=== PATIENT | female | born 1970 | race Hispanic/Latino ===

== ENCOUNTER 2020-03-03 18:56 | Observation (INO) | payer BC ==
[~2020-03-03] VITALS: Ht 157.5 cm; Wt 55.5 kg
[~2020-03-03 18:56] MED LIST: MULTI-VITAMIN1 EACH; NEXIUM40 MG PO
--- NOTE | 2020-03-03 19:30 | Emergency Department Note ---
History of Present Illnes History of Present Illness Chief Complaint: COVID PUI History of Present Illness This is a 50 year old female REPORTS GENERALIZED WEAKNESS, CHEST AND BACK PAIN, BODY ACHES, CHILLS; PT TESTED AT [employer] YESTERDAY FOR COVID (NOT RESULTED AT THIS TIME) PT REPORTS WAS IN CONTACT WITH COVID + FRIEND X1 WEEK AGO. STATES HER SYMPTOMS STARTED 3 DAYS AGO. Historian: Patient Arrival Mode: Car Onset (how long ago): day(s) (3) Location: CHEST Quality: PAIN, HURTS TO BREATH Severity: mild Onset quality: gradual Duration (how long): day(s) (3) Timing of current episode: constant Progression: unchanged Chronicity: new Context: Denies recent illness, Denies recent surgery Exacerbating factors: other (INSPIRATION, COUGH) Associated symptoms: Reports chest pain (WITH INSPIRATION, COUGH), Reports cough (DRY), Reports fever/chills (SUBJECTIVE), Reports malaise Treatments prior to arrival: none Past Medical/Family History Physician Review I have reviewed the patient's past medical and family history. Any updates have been documented here. Past Medical History Recent Fever: Yes Clinical Suspicion of Infectio: No New/Unexplained Change in Ment: No Past Medical History: GERD Other Surgery: BREAST AUGMENTATION Social History Smoking Cessation: Never Smoker Alcohol Use: Occasional Any Illegal Drug Use: No Family History Family history of heart diseas: No Other Last Tetanus: UTD Review of Systems Review of Systems Constitutional: Reports as per HPI EENTM: Reports no symptoms Cardiovascular: Reports as per HPI Respiratory: Reports as per HPI Gastrointestinal: Reports no symptoms Genitourinary: Reports no symptoms Musculoskeletal: Reports no symptoms Integumentary: Reports no symptoms Neurological: Reports no symptoms Psychological: Reports no symptoms Endocrine: Reports no symptoms Hematological/Lymphatic: Reports no symptoms Physical Exam Related Data Allergies: Coded Allergies: No Known Allergies (Unverified , 06/23/13) Triage Vital Signs Vital Signs Date Time Temp Pulse Resp B/P (MAP) Pulse Ox O2 Delivery O2 Flow Rate FiO2 03/03/20 19:02 99.4 78 17 152/79 99 Vital signs reviewed: Yes Physical Exam CONSTITUTIONAL Constitutional: Present well-developed, Present well-nourished HENT HENT: Present normocephalic, Present atraumatic, Present oropharynx clear/moist, Present nose normal HENT L/R: Present left ext ear normal, Present right ext ear normal EYES Eyes: Reports PERRL, Reports conjunctivae normal NECK Neck: Present ROM normal PULMONARY Pulmonary: Present effort normal, Present breath sounds normal, Present chest tenderness (MILD MIDSTERNAL) CARDIOVASCULAR Cardiovascular: Present regular rhythm, Present heart sounds normal, Present capillary refill normal, Present normal rate GASTROINTESTINAL Abdominal: Present soft, Present nontender, Present bowel sounds normal GENITOURINARY Genitourinary: Present exam deferred SKIN Skin: Present warm, Present dry MUSCULOSKELETAL Musculoskeletal: Present ROM normal NEUROLOGICAL Neurological: Present alert, Present oriented x 3, Present no gross motor or sensory deficits PSYCHOLOGICAL Psychological: Present mood/affect normal, Present judgement normal Results Laboratory Laboratory Laboratory Tests Test 03/03/20 21:05 03/03/20 19:25 Urine Color Yellow (YELLOW) Urine Clarity Clear (CLEAR) Urine pH 5.5 (5 - 7) Urine Specific [place] >=1.030 (1.010-1.025) Urine Protein Negative (NEGATIVE) Urine Glucose (UA) Negative (NEGATIVE) Urine Ketones Negative (NEGATIVE) Urine Blood Trace (NEGATIVE) Urine Nitrite Negative (NEGATIVE) Urine Bilirubin Negative (NEGATIVE) Urine Urobilinogen 0.2 mg/dL (0.2 - 1) Urine Leukocyte Esterase Negative (NEGATIVE) Urine RBC 6-10 /HPF (0-5) Urine WBC 6-10 /HPF (0-5) Urine Epithelial Cells Few /LPF (NONE) Urine Bacteria Rare /HPF (NONE) White Blood Count 4.15 x10e3/uL (4.8-10.8) Red Blood Count 4.68 x10e6/uL (3.6-5.1) Hemoglobin 13.6 g/dL (12.0-16.0) Hematocrit 41.5 % (34.2-44.1) Mean Corpuscular Volume 88.7 fL (81-99) Mean Corpuscular Hemoglobin 29.1 pg (28-32) Mean Corpuscular Hemoglobin Concent 32.8 g/dL (31-35) Red Cell Distribution Width 14.0 % (11.7-14.4) Platelet Count 321 x10e3/uL (140-360) Neutrophils (%) (Auto) 49.7 % (38.7-80.0) Lymphocytes (%) (Auto) 41.0 % (18.0-39.1) Monocytes (%) (Auto) 6.7 % (4.4-11.3) Eosinophils (%) (Auto) 1.7 % (0.0-6.0) Basophils (%) (Auto) 0.7 % (0.0-1.0) Neutrophils # (Auto) 2.1 (2.1-6.9) Lymphocytes # (Auto) 1.7 (1.0-3.2) Monocytes # (Auto) 0.3 (0.2-0.8) Eosinophils # (Auto) 0.1 (0.0-0.4) Basophils # (Auto) 0.0 (0.0-0.1) Absolute Immature Granulocyte (auto 0.01 x10e3/uL (0-0.1) D-Dimer Quantitative (PE/DVT) 500 ng/mL (0-400) Sodium Level 138 mmol/L (136-145) Potassium Level 3.7 mmol/L (3.5-5.1) Chloride Level 105 mmol/L (98-107) Carbon Dioxide Level 22 mmol/L (22-29) Anion Gap 14.7 mmol/L (8-16) Blood Urea Nitrogen 11 mg/dL (7-26) Creatinine 0.75 mg/dL (0.57-1.11) Estimat Glomerular Filtration Rate > 60 ML/MIN (60-) BUN/Creatinine Ratio 15 (6-25) Glucose Level 117 mg/dL (74-118) Calcium Level 10.0 mg/dL (8.4-10.2) Total Bilirubin 0.2 mg/dL (0.2-1.2) Aspartate Amino Transf (AST/SGOT) 20 IU/L (5-34) Alanine Aminotransferase (ALT/SGPT) 14 IU/L (0-55) Alkaline Phosphatase 47 IU/L (40-150) Creatine Kinase 36 IU/L (29-168) Creatine Kinase MB 0.30 ng/mL (0-5.0) Troponin I < 0.001 ng/mL (0-0.300) Total Protein 7.4 g/dL (6.5-8.1) Albumin 4.0 g/dL (3.5-5.0) Globulin 3.4 g/dL (2.3-3.5) Albumin/Globulin Ratio 1.2 (0.8-2.0) Human Chorionic Gonadotropin, Qual Negative (NEGATIVE) Lab results reviewed: Yes Imaging Imaging results reviewed: Yes Impressions ct chest IMPRESSION: No pulmonary emboli. Left lower lobe airspace opacity, representing pneumonia. Signed by: Dr. 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 Was exposed was with a friend a week ago who tested positive for Covid a couple days later. CBC, CMP, cardiac enzymes, EKG, chest x-ray, Covid 19, d-dimer, ordered to eval for myocardial infarction, pneumonia, Covid 19, pulmonary embolus. Patient's D-dimer test was positive. CT chest with contrast PE protocol ordered to eval for pulmonary embolus. Patient found to have left lobe pneumonia has no white count has positive Covid exposure is felt the patient most likely a covid [address] Sushant Marshall doctor should be and Dr. Avery. Admit patient to the coronal unit under suspicion start Rocephin and zithromax Assessment & Plan Final Impression: (1) Pneumonia Depart Disposition: ADMITTED Last Vital Signs Date Time Temp Pulse Resp B/P (MAP) Pulse Ox O2 Delivery O2 Flow Rate FiO2 03/03/20 19:02 99.4 78 17 152/79 99 Home Meds Reported Medications Multivitamin (MULTI-VITAMIN DAILY) 1 Each Tablet 07/02/13 Esomeprazole Magnesium (NEXIUM) 40 Mg Capsule., 40 MG PO DAILY 06/23/13 JOSÉ ANTONIO SORENSEN MD Mar 03, 2020 19:30
[2020-03-03 19:49] LABS: BASOPHILS % 0.7 % (0.0-1.0); EOSINOPHILS # (AUTO) 0.1 (0.0-0.4); EOSINOPHILS % 1.7 % (0.0-6.0); HEMATOCRIT 41.5 % (34.2-44.1); HEMOGLOBIN 13.6 g/dL (12.0-16.0); LYMPHOCYTES # (AUTO) 1.7 (1.0-3.2); MEAN CORPUSCULAR HEMOGLOBIN 29.1 pg (28-32); MEAN CORPUSCULAR HGB CONC 32.8 g/dL (31-35); MEAN CORPUSCULAR VOLUME 88.7 fL (81-99); MONOCYTES # (AUTO) 0.3 (0.2-0.8); MONOCYTES % 6.7 % (4.4-11.3); NEUTROPHILS # (AUTO) 2.1 (2.1-6.9); NEUTROPHILS % 49.7 % (38.7-80.0); PLATELET COUNT 321 x10e3/uL (140-360); RED BLOOD COUNT 4.68 x10e6/uL (3.6-5.1)
[2020-03-03 20:07] LABS: ALANINE AMINOTRANSFERASE 14 IU/L (0-55); ALBUMIN/GLOBULIN RATIO 1.2 (0.8-2.0); ALKALINE PHOSPHATASE 47 IU/L (40-150); ANION GAP 14.7 mmol/L (8-16); BLOOD UREA NITROGEN 11 mg/dL (7-26); BUN/CREATININE RATIO 15 (6-25); CARBON DIOXIDE 22 mmol/L (22-29); CHLORIDE 105 mmol/L (98-107); CREATINE KINASE 36 IU/L (29-168); CREATININE, SERUM 0.75 mg/dL (0.57-1.11); EST GLOMERULAR FILTRATION RATE > 60 ML/MIN (60-); GLUCOSE 117 mg/dL (74-118); POTASSIUM 3.7 mmol/L (3.5-5.1); SODIUM 138 mmol/L (136-145)
--- NOTE | 2020-03-03 20:44 | Diagnostic Imaging Report ---
EXAMINATION: CHEST SINGLE (PORTABLE) INDICATION: ^Y ^fever, chills, cough, chest pain ^[id number] ^1952 ^Y COMPARISON: None FINDINGS: AP view TUBES and LINES: None. LUNGS: Lungs are well inflated. Left hilar fullness. PLEURA: No pleural effusion or pneumothorax. HEART AND MEDIASTINUM: The cardiomediastinal silhouette is unremarkable. BONES AND SOFT TISSUES: No acute osseous lesion. Soft tissues are unremarkable. UPPER ABDOMEN: No free air under the diaphragm. IMPRESSION: Left hilar fullness. Underlying pneumonia cannot be excluded. Signed by: Dr. Laz Arellano MD on 03/03/2020 8:40 PM
[2020-03-03 22:01] LABS: CLARITY,URINE CLEAR (CLEAR); COLOR,URINE YELLOW (YELLOW); LEUKOCYTE ESTERASE ,URINE NEGATIVE (NEGATIVE); NITRITE,URINE NEGATIVE (NEGATIVE)
[2020-03-03 22:02] LABS: BACTERIA,URINE RARE /HPF; BILIRUBIN,URINE NEGATIVE (NEGATIVE); EPITHELIAL CELLS,URINE FEW /LPF; KETONES,URINE NEGATIVE (NEGATIVE); PROTEIN,URINE DIPSTICK NEGATIVE (NEGATIVE); URINE UROBILINOGEN 0.2 mg/dL (0.2 - 1)
--- NOTE | 2020-03-03 22:36 | Diagnostic Imaging Report ---
EXAM: CT Chest WITH contrast (PE Protocol) INDICATION: ^Y ^PE PROTOCOL ^[id number] ^2141 ^Y COMPARISON: Same day chest x-ray TECHNIQUE: Chest was scanned utilizing a multidetector helical scanner from the lung apex through the level of the diaphragm after administration of IV contrast. Thin section reconstructions were obtained with special concentration on the pulmonary arteries. Coronal and sagittal reformations were obtained. Dose modulation, iterative reconstruction, and/or weight based adjustment of the mA/kV was utilized to reduce the radiation dose to as low as reasonably achievable. Pulmonary embolism protocol was performed. IV CONTRAST: 100 mL of Isovue-370 COMPLICATIONS: None RADIATION DOSE: Total DLP: 313.44 mGy*cm Estimated effective dose: (DLP x 0.014 x size factor) mSv CTDIvol has been reviewed. It is below the limits set by the Radiation Protocol Committee (RPC). FINDINGS: LINES/ TUBES: None. LUNGS AND AIRWAYS: No filling defect is identified within the pulmonary arteries to the segmental level. Left lower lobe airspace opacity. Airways are normal. PLEURA: The pleural spaces are clear. HEART AND MEDIASTINUM: The thyroid gland is normal. No mediastinal, hilar or axillary lymphadenopathy. The heart is normal in size.. There is no pericardial effusion. . Main pulmonary artery measures 1.8 cm in diameter and the ascending aorta measures 3 cm. UPPER ABDOMEN: Left hepatic lobe subcentimeter hypodensity is too small to characterize. BONES: The visualized bony thorax is within normal limits. SOFT TISSUES: Bilateral breast implants. IMPRESSION: No pulmonary emboli. Left lower lobe airspace opacity, representing pneumonia. Signed by: Dr. Laz Arellano MD on 03/03/2020 10:33 PM
[2020-03-03] MEDS ORDERED: AZITHROMYCIN 500MG/NS 250 ML 250 ML IV SCH (22:45)
[2020-03-03] MEDS ORDERED: ALBUTEROL SULFATE HFA 8GM INHALATION AEROSOL INH PRN (22:45)
[2020-03-03] MEDS ORDERED: CEFTRIAXONE SOD 1 GM/NS 50 ML 50 ML IV SCH (22:45)
[2020-03-03] MEDS ORDERED: ACETAMINOPHEN 325 MG TAB PO PRN (22:45)
[2020-03-03] MEDS: SODIUM CHLORIDE 0.9% 1000ML 1,000 ML IV SCH (22:58)
--- NOTE | 2020-03-03 23:52 | Consultation ---
DATE OF CONSULTATION: Pulmonary Critical Care Consultation ADDITIONAL ATTENDING PHYSICIAN: Mary Avery MD CHIEF COMPLAINT: Shortness of breath, weakness, and abdominal pain. HISTORY OF PRESENT ILLNESS: The patient is a 50-year-old woman. She reports malaise and dyspnea for the past week. She also has some cough as well as some abdominal pain. She denies any nausea or vomiting. She had some low-grade fevers at home. PAST SURGICAL HISTORY: None. PAST MEDICAL HISTORY: 1. No prior history of hypertension or heart disease. 2. No prior history of asthma or respiratory problems. 3. No prior history of diabetes. ALLERGIES: NO KNOWN DRUG ALLERGIES. SOCIAL HISTORY: The patient is not a smoker. She is not a drinker. FAMILY HISTORY: Noncontributory. REVIEW OF SYSTEMS: The patient had some fevers. She has no headache. She has no neck pain. She does note some dyspnea on exertion. She has a mild cough. She has no chest pain. She has no vomiting or diarrhea, although she does have abdominal pain. She has no leg edema. PHYSICAL EXAMINATION: VITAL SIGNS: The patient is afebrile. Blood pressure is 119/68, saturation is 100%. The pulse is 68. HEENT: Shows no facial swelling or erythema. CARDIAC: Reveals regular rate and rhythm with normal S1, S2. LUNGS: Auscultation of the lungs shows crackles at the bases. There is no wheezing. ABDOMEN: Soft, nontender. There is no rebound or guarding. EXTREMITIES: Shows no leg edema or calf tenderness. There is no cyanosis or clubbing. SKIN: Shows no rashes. NEUROLOGICAL: Shows no focal abnormalities. LABORATORY DATA: White blood cell count is 4.1 and hemoglobin is 13.6. The platelet count is 321. BUN to creatinine ratio is normal. Other electrolytes within normal limits. RADIOGRAPHIC DATA: Chest CT shows the left lower lobe airspace opacities suggestive of pneumonia. IMPRESSION: COVID-19 and viral pneumonia. PLAN: 1. Oxygen. 2. Rocephin and Zithromax. 3. IV fluids. 4. Tylenol. Artemio Marshall MD [facility]/LIZ /[id number]
[2020-03-03] MEDS ORDERED: ONDANSETRON HCL INJ 2MG/ML 2ML 2 MG/ML VIAL ONE (23:53)
[2020-03-04] VITALS (8 sets, daily range): BP systolic 90–147; BP diastolic 55–102
[2020-03-04] MEDS ORDERED: ONDANSETRON HCL INJ 2MG/ML 2ML 2 MG/ML VIAL IV PRN (00:15)
--- OUTSIDE RECORDS SUMMARY | 2020-03-04 00:15 | XMS REPORT | Continuity of Care Document ---
Author Author [facility] t Organization [facility] Address [address] [place] [address] Phone Unavailable Care Team Providers Care [facility] D[facility] Room Cashier Name Role Phone Sanjeev SORENSEN Attphys Unavailable Problems This patient has no known problems. Allergies, Adverse Reactions, Alerts This patient has no known allergies or adverse reactions. Medications This patient has no known medications. Procedures This patient has no known procedures. Results Test Description Test Time Test Comments Results Result Comments Source CT CHEST W 2020-03-03 22:28:[address] [address] Patient Name: ADRIEN BROWN MR #: [id number] : 1970 Age/Sex: 50/F Req #: [id number] Adm Physician: Ordered by: JOSÉ ANTONIO SORENSEN MD Report #: [id number] Location: ER Room/Bed: Procedure: [id number] CT/CT CHEST W Exam Date: 03/03/20 Exam Time: 2141 REPORT STATUS: Signed EXAM: CT Chest WITH contrast (PE Protocol) INDICATION: Y PE PROTOCOL [id number] COMPARISON: Same day chest x-ray TECHNIQUE: Chest was scanned utilizing a multidetector helical scanner from the lung apex through the level of the diap hragm after administration of IV contrast. Thin section reconstructions were obtained with special concentration on the pulmonary arteries. Coronal and sagittal reformations were obtained. Dose modulation, iterative reconstruction, and/or weight based adjustment of the mA/kV was utilized to reduce the radiation dose to as low as reasonably achievable. Pulmonary embolism protocol was performed. IV CONTRAST: 100 mL of Isovue-370 COMPLICATIONS: None RADIATION DOSE: Total DLP: 313.44 mGy*cm Estimated effective dose: (DLP x 0.014 x size factor) mSv CTDIvol has been reviewed. It is below the limits set by the Radiation Protocol Committee (RPC). FINDINGS: LINES/ TUBES: None. LUNGS AND AIRWAYS: No filling defect is identified within the pulmonary arteries to the segmental level. Left lower lobe airspace opacity. Airways are normal. PLEURA: The pleural spaces are clear. HEART AND MEDIASTINUM: The thyroid gland is normal. No mediastinal, hilar or axillary lymphadenopathy. The heart is normal in size.. There is no pericardial effusion. . Main pulmonary artery measures 1.8 cm in diameter and the ascending aorta measures 3 cm. UPPER ABDOMEN: Left hepatic lobe subcentimeter hypodensity is too small to characterize. BONES: The visualized bony thorax is within normal limits. SOFT TISSUES: Bilateral breast implants. IMPRESSION: No pulmonary emboli. Left lower lobe airspace opacity, representing pneumonia. Signed by: Dr. Laz Pena MD on 03/03/2020 10:33 PM Dictated By: LAZ PENA MD 32 Transcribed By: DANAE on 03/03/202232 COPY TO: JOSÉ ANTONIO SORENSEN MD CHEST SINGLE (PORTABLE) 2020-03-03 20:40:00 [place] [address] Patient Name: ADRIEN BROWN MR #: [id number] : 1970 Age/Sex: 50/F Req #: [id number] Adm Physician: Ordered by: JOSÉ ANTONIO SORENSEN MD Report #: [id number] Location: ER Room/Bed: Procedure: [id number] DX/CHEST SINGLE (PORTABLE) Exam Date: 03/03/20 Exam Time: 1954 REPORT STATUS: Signed EXAMINATION: CHEST SINGLE (PORTABLE) INDICATION: Y fever, chills, cough, chest pain [id number] COMPARISON: None FINDINGS: AP view TUBES and LINES: None. LUNGS: Lungs are well inflated. Left hilar fullness. PLEURA: No pleural effusion or pneumothorax. HEART AND MEDIASTINUM: The cardiomediastinal silhouette is unremarkable. BONES AND SOFT TISSUES: No acute osseous lesion. Soft tissues are unremarkable. UPPER ABDOMEN: No free air under the diaphragm. IMPRESSION: Left hilar fullness. Underlying pneumonia cannot be excluded. Signed by: Dr. Laz Pena MD on 03/03/2020 8:40 PM Dictated By: LAZ PENA MD 39 Transcribed By: DANAE on 03/03/202039 COPY TO: JOSÉ ANTONIO SORENSEN MD
--- NOTE | 2020-03-04 00:50 | NUR ---
{null, dr asencio informed of negative covid test. spoke c dr scott. states to send to covid unit due to high suspicion for covid based on history of illness and diagnostic results. }
--- NOTE | 2020-03-04 01:00 | NUR ---
{null, Received patient from ED via stretcher. Assisted to bed. IV to left AC 20 G patent. Iv fluids infusing. Patient has no complain of shortness of breath at this time but think that she might need it when she goes to the bathroom. O@ at 2 liters/min standby for patient use. Refused to use bed alarm patient thinks she don't need it. Side rails up, bed locked. Call light within reached. }
--- NOTE | 2020-03-04 01:03 | NUR ---
{null, Dr. Ramirez and Dr. Marshall is aware of this consultation per [facility] ER nurse. }
[2020-03-04] MEDS ORDERED: SODIUM CHLORIDE 0.9% 50ML 50 ML ONE (02:05)
[2020-03-04] MEDS ORDERED: IOPAMIDOL 370 MG/ML 200 ML INFUS..BTL INJ ONE (02:05)
[2020-03-04] MEDS: SODIUM CHLORIDE 0.9% 1000ML 1,000 ML IV SCH (05:22)
[2020-03-04 05:45] LABS: BASOPHILS % 0.6 % (0.0-1.0); EOSINOPHILS # (AUTO) 0.1 (0.0-0.4); EOSINOPHILS % 1.8 % (0.0-6.0); HEMATOCRIT 38.1 % (34.2-44.1); HEMOGLOBIN 12.4 g/dL (12.0-16.0); LYMPHOCYTES # (AUTO) 2.1 (1.0-3.2); LYMPHOCYTES % 61.6 % (18.0-39.1); MEAN CORPUSCULAR HEMOGLOBIN 28.9 pg (28-32); MEAN CORPUSCULAR HGB CONC 32.5 g/dL (31-35); MEAN CORPUSCULAR VOLUME 88.8 fL (81-99); MONOCYTES # (AUTO) 0.3 (0.2-0.8); NEUTROPHILS # (AUTO) 0.9 (2.1-6.9); PLATELET COUNT 289 x10e3/uL (140-360); RED BLOOD COUNT 4.29 x10e6/uL (3.6-5.1)
[2020-03-04 06:21] LABS: ALANINE AMINOTRANSFERASE 14 IU/L (0-55); ALBUMIN 3.8 g/dL (3.5-5.0); ALBUMIN/GLOBULIN RATIO 1.3 (0.8-2.0); ALKALINE PHOSPHATASE 42 IU/L (40-150); ANION GAP 11.7 mmol/L (8-16); CALCIUM 8.7 mg/dL (8.4-10.2); CARBON DIOXIDE 23 mmol/L (22-29); CHLORIDE 108 mmol/L (98-107); CREATININE, SERUM 0.71 mg/dL (0.57-1.11); EST GLOMERULAR FILTRATION RATE > 60 ML/MIN (60-); GLUCOSE 103 mg/dL (74-118); POTASSIUM 3.7 mmol/L (3.5-5.1); SODIUM 139 mmol/L (136-145)
[2020-03-04 06:37] LABS: BLOOD UREA NITROGEN 7 mg/dL (7-26); BUN/CREATININE RATIO 10 (6-25)
[2020-03-04 06:55] LABS: CREATINE KINASE MB 0.4 ng/mL (0-5.0)
[2020-03-04] MEDS ORDERED: PANTOPRAZOLE SOD 40 MG TABEC PO SCH (09:00)
[2020-03-04 09:51] LABS: EOSINOPHILS % (MANUAL) 1 % (0-7); LYMPHOCYTES % (MANUAL) 58 % (19-48); MONOCYTES % (MANUAL) 8 % (3.4-9.0); NEUTROPHILS % (MANUAL) 33 % (40-74)
[2020-03-04] MEDS ORDERED: CALCIUM CARBONATE 500 MG CHEWABLE TABS PO PRN (12:30)
--- NOTE | 2020-03-04 13:38 | History and Physical ---
PRIMARY CARE PHYSICIAN: Dr. Bailon at [facility] CHIEF COMPLAINT: Shortness of breath, generalized weakness, and body aches. HISTORY OF PRESENT ILLNESS: This is a 50-year-old female with past medical history of GERD, presented to the ER, with complaints of chest pain radiating to the back and generalized weakness with body aches. She reports she was exposed to somebody has COVID-19 virus at a [employer] last Thursday. She reports started feeling the symptoms on Thursday, four days later. She reports continued to worsen. Denies any cough, fever, nausea, or vomiting. She reports loss of appetite and abdominal pain with one time episode of diarrhea. She presented to the ER for further evaluation. Chest x-ray showed left hilar fullness, underlying pneumonia cannot be excluded, so was tested for COVID and transferred to COVID unit. PAST MEDICAL HISTORY: Gastroesophageal reflux disease. PAST SURGICAL HISTORY: She reports breast implant. FAMILY MEDICAL HISTORY: She reports her mother has hyperthyroidism, does not know of her father's medical conditions. SOCIAL HISTORY: Denies any tobacco or illicit drug use, but reports drinks alcohol once a week. ALLERGIES: NO KNOWN DRUG ALLERGIES. REVIEW OF SYSTEMS: Twelve-system review was negative except for as noted on HPI. PHYSICAL EXAMINATION: VITAL SIGNS: Temperature 98.2, pulse is 56, respirations 19, blood pressure 90/55, and pulse ox is 99% on room air. GENERAL: Fatigue. HEENT: Normocephalic, atraumatic. NECK: Supple. LUNGS: Decreased breath sounds. CARDIOVASCULAR: Regular rate and rhythm. S1, S2 heard. GI: Soft and mild tenderness in the epigastric area. NEUROLOGIC: Alert, awake, and oriented x3. MUSCULOSKELETAL: Moves all extremities. No edema. SKIN: Dry and intact. PSYCH: Calm. LABORATORY DATA: WBCs 3.41, hemoglobin 12.4, hematocrit 38.1, and platelets 289. Sodium 139, potassium 3.7, CO2 of 23, BUN is 7, and creatinine 0.7. AST 17 and ALT 14. Troponin I, 0.001 and 0.002. HCG negative. D-dimer 500. Urine negative. Coronavirus PCR negative. Blood cultures pending. IMAGING DATA: Chest x-ray shows left hilar fullness, underlying pneumonia cannot be excluded. CT chest shows no PE, left lower lobe airspace opacities representing pneumonia. IMPRESSION: 1. Respiratory distress due to community-acquired pneumonia. CT and chest x-ray were noted. Pulmonary and ID consulted. She is started on azithromycin and Rocephin. COVID-19 is negative. Blood culture is pending. 2. Elevated D-dimer. CTA chest was negative for pulmonary embolism. Albuterol as needed. 3. History of gastroesophageal reflux disease. Protonix daily. 4. Deep venous thrombosis prophylaxis. We will start her on heparin subcu. PLAN: To continue IV antibiotics and fluids, supportive therapy. Pending ID recommendations. Dictated by WILTON Singleton Mary Avery MD [facility]/MODL /[id number]
--- NOTE | 2020-03-04 13:58 | Progress Note ---
DATE: SUBJECTIVE: The patient went for CT of the chest. There are no pulmonary emboli. There is left lower lobe airspace opacities, suggestive of pneumonia. She still complains of some dyspnea and mild abdominal pain. She has no fevers. She has minimal cough. PHYSICAL EXAMINATION: VITAL SIGNS: Blood pressure is 98/73, saturation is 100% and the pulse is 69. HEENT: Shows no facial swelling or erythema. CARDIAC: Reveals regular rate and rhythm with normal S1, S2. LUNGS: Auscultation of lungs reveals decreased breath sounds at the left base. ABDOMEN: Soft and nontender. There is no rebound or guarding. EXTREMITIES: Shows no leg edema or calf tenderness. LABORATORY DATA: White blood cell count is 3.4 and hemoglobin is 12.4. The platelet count is 289. BUN to creatinine ratio is 7 to 0.71. IMPRESSION: 1. Atypical pneumonia. 2. Possible COVID-19 infection. 3. Gastroesophageal reflux. PLAN: 1. Complete Zithromax as an outpatient. 2. Tylenol. 3. Follow up with Dr. Ramirez in 2 weeks. Artemio Marshall MD [facility]/MODL /[id number]
--- NOTE | 2020-03-04 14:16 | NUR ---
{null, Per Dr.Hamer Pace and , "patient cleared to discharge." Sabine Marx NP aware. Received orders to discharge patient. }
[2020-03-04] MEDS ORDERED: LEVOFLOXACIN250 MG PO (14:21)
--- NOTE | 2020-03-04 14:54 | Progress Note ---
DATE: SUBJECTIVE: Ms. Escobar is complaining of shortness of breath. She says she is feeling worse. The patient is a 50-year-old female who has history of gastroesophageal reflux disease, breast implant, comes in with cold and fever for a couple days. She was in a [employer] and she was exposed to someone who was sick with COVID-19. The people who were in the democrat, they were fired, and they all were sick. Her illness for sure she is positive, so the patient came to emergency room where she was admitted. She is currently lying in bed comfortably. REVIEW OF SYSTEMS: HEENT: Negative except for little bit of sore throat. GI: Negative. : Negative. LABORATORY DATA: Reviewed. Blood cultures still pending. White count 3.4, hemoglobin 12. Her COVID-19 was negative. Sodium 139, potassium 3.7, and creatinine 0.71. She had a chest CT which showed left upper lobe airspace opacity. PHYSICAL EXAMINATION: GENERAL: She is currently alert, oriented. VITAL SIGNS: Stable, currently afebrile. HEENT: She is not icteric. NECK: Supple. CHEST: Clear. COR: S1, S2. ABDOMEN: Soft. Bowel sounds present. No tenderness. EXTREMITIES: No edema. SKIN: No rash. IMPRESSION: 1. Pneumonia, community acquired. 2. Still concerned coronavirus disease-19, even though it is negative I would recommend to stay in droplet isolation. I recommend the patient be discharged home with to stay in quarantine for 2 weeks. We will discharge her with Levaquin 5 mg p.o. daily for 5 days, to see me back in 2 weeks. Cough syrup as needed. Recheck in two weeks. MD RENALDO Waldron/MODL /[id number]
--- NOTE | 2020-03-04 15:30 | NUR ---
{null, Left AC IV discontinued. No signs of infiltration noted. Placed 2x2 gauze and coban. Taken by PCT via wheelchair to personal car. Family member waiting for patient. AAOX4 to time, person, place, situation. Respirations even and unlabored. [id number]% on room air. Discharge instructions, rx, and all personal belongings taken with patient }
[2020-03-04] MEDS ORDERED: HEPARIN SOD (PORCINE) 5,000 UNIT/ML VIAL SC SCH (21:00)
--- NOTE | 2020-03-05 04:40 | Discharge Summary ---
PRIMARY CARE PHYSICIAN: Dr. Bailon at [facility]. FINAL DISCHARGE DIAGNOSES: 1. Community-acquired pneumonia. 2. Elevated D-dimer. 3. History of gastroesophageal reflux disease. CONSULTANTS: 1. Dr. 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 2. Dr. Ramirez with Infectious Disease. PROCEDURES: None. HISTORY: Per HPI. HOSPITAL COURSE: Ms. Escobar is a 50-year-old female with past medical history of GERD, presented to the ER with complaints of chest pain radiating to the back, generalized weakness and body aches. She reported she was exposed to someone with COVID-19, so she was placed in droplet isolation and started on Rocephin and azithromycin per ID and fish hatchery supervisor. COVID-19 test was negative, although she has symptoms and exposure to others. She is afebrile, vital signs stable, cleared by ID for discharge on Levaquin and instructed to quarantine for 2 weeks for possible COVID, even though is negative. PHYSICAL EXAMINATION: VITAL SIGNS: Temp 98.2, pulse 56, respirations 19, blood pressure 90/55, and pulse ox 99% on room air. GENERAL: Fatigue. LUNGS: With decreased breath sounds. CARDIOVASCULAR: Regular rate and rhythm. NEUROLOGIC: Alert, awake, and oriented x3. SKIN: Dry and intact. CONDITION AT DISCHARGE: Improved and stable. DISCHARGE MEDICATIONS: Please see medication reconciliation list. She was given Levaquin and advised to take vitamin C and zinc sulfate [id number]. FOLLOWUP: Follow up with Dr. Ramirez and PCP in 1 to 2 weeks for repeat check. TIME SPENT: Total time of discharge is 32 minutes. Dictated by WILTON Singleton Mary Avery MD MY/MODL /[id number] cc: Dr. Bailon [facility]
== END 2020-03-04 15:30 | disposition home or self-care (01) ==
LOC: ER 18:56 → ERHOLD 03-04 00:13 → IMCU 03-04 01:08
PROVIDERS: ADMIT Internal Medicine; ATTEND Internal Medicine
DX: J18.9 Pneumonia, unspecified organism (principal); K21.9 Gastro-esophageal reflux disease without esophagitis; R06.03 Acute respiratory distress; R79.89 Other specified abnormal findings of blood chemistry; Z11.59 Encounter for screening for other viral diseases; Z77.9 Other contact with and (suspected) exposures hazardous to health
CPT/HCPCS: 36415 ×2; 71045; 71260; 80053 ×2; 81001; 82550 ×2; 82553 ×2; 84484 ×2; 84702; 85025 ×2; 85379; 87040; 87635; 93005; 99284; G0378; J0456; J0696; J2405; J7030 ×2; Q9967; S0164

== ENCOUNTER 2020-11-02 14:11 | Emergency (ER) | payer BC ==
[~2020-11-02] VITALS: Ht 157.5 cm; Wt 55.3 kg
[~2020-11-02 14:11] MED LIST changes: +LEVOFLOXACIN250 MG PO
[2020-11-02 14:42] LABS: BASOPHILS # (AUTO) 0.1 (0.0-0.1); BASOPHILS % 1.2 % (0.0-1.0); EOSINOPHILS # (AUTO) 0.3 (0.0-0.4); EOSINOPHILS % 5.2 % (0.0-6.0); HEMOGLOBIN 12.7 g/dL (12.0-16.0); LYMPHOCYTES # (AUTO) 2.1 (1.0-3.2); LYMPHOCYTES % 34.4 % (18.0-39.1); MEAN CORPUSCULAR HEMOGLOBIN 29.7 pg (28-32); MEAN CORPUSCULAR HGB CONC 33.4 g/dL (31-35); MEAN CORPUSCULAR VOLUME 88.8 fL (81-99); MONOCYTES # (AUTO) 0.4 (0.2-0.8); MONOCYTES % 5.9 % (4.4-11.3); NEUTROPHILS # (AUTO) 3.2 (2.1-6.9); PLATELET COUNT 389 x10e3/uL (140-360); RED BLOOD COUNT 4.28 x10e6/uL (3.6-5.1); RED CELL DISTRIBUTION WIDTH 13.4 % (11.7-14.4)
[2020-11-02] MEDS: ASPIRIN 81 MG CHEW TAB PO ONE (14:43)
[2020-11-02] MEDS: SODIUM CHLORIDE 0.9% 1000ML 1,000 ML IV STA (14:43)
[2020-11-02 15:06] LABS: ALANINE AMINOTRANSFERASE 16 IU/L (0-55); ALBUMIN 4.2 g/dL (3.5-5.0); ALBUMIN/GLOBULIN RATIO 1.3 (0.8-2.0); ALKALINE PHOSPHATASE 48 IU/L (40-150); ANION GAP 14.8 mmol/L (8-16); BLOOD UREA NITROGEN 14 mg/dL (7-26); BUN/CREATININE RATIO 16 (6-25); CALCIUM 9.1 mg/dL (8.4-10.2); CARBON DIOXIDE 26 mmol/L (22-29); CHLORIDE 104 mmol/L (98-107); CREATINE KINASE 76 IU/L (29-168); CREATININE, SERUM 0.86 mg/dL (0.57-1.11); EST GLOMERULAR FILTRATION RATE > 60 ML/MIN (60-); GLUCOSE 99 mg/dL (74-118); POTASSIUM 3.8 mmol/L (3.5-5.1); SODIUM 141 mmol/L (136-145)
[2020-11-02] MEDS ORDERED: TYLENOL # 31 EA PO (16:02)
[2020-11-02] MEDS ORDERED: AZITHROMYCIN250 MG PO (16:21)
[2020-11-02 16:24] VITALS: BP 112/67
== END 2020-11-02 16:28 | disposition home or self-care (01) ==
LOC: ER 14:20
DX: R07.9 Chest pain, unspecified (principal); Z20.822 Contact with and (suspected) exposure to COVID-19
CPT/HCPCS: 36415; 71045; 80053; 82550; 82553; 84484; 85025; 85379; 93005; 99284; J7030; U0002